=== PATIENT | male | born 1990 | race Caucasian/White ===

== ENCOUNTER 2016-10-29 17:17 | Emergency (ER) | payer MEDICAID, OTHER ==
[~2016-10-29] VITALS: Ht 170.2 cm; Wt 72.6 kg
[2016-10-29 17:29] VITALS: BP 131/68
[2016-10-29] MEDS ORDERED: ROBITUSSIN COU118 M4 PO (17:49)
[2016-10-29] MEDS ORDERED: AMOXICILLIN500 MG ORAL (17:49)
[2016-10-29 17:53] VITALS: BP 131/68
--- NOTE | 2016-10-29 18:08 | Emergency Room Report ---
History of Present Illness General Chief Complaint: Upper Respiratory Illness Source: Patient Present Illness HPI The patient is a 25-year-old male presenting for 4 days of productive cough and sore throat. The patient does admit to a sick contact which had similar symptoms. The patient denies recent travel. The patient denies fever, chills, shortness of breath, wheezing, hemoptysis, headache, neck pain or stiffness, CP Allergies: Coded Allergies: No Known Allergies (Unverified , 10/29/16) Patient History Past Medical History: see triage record Pertinent Family History: none Reviewed Nursing Documentation: PMH: Agreed, PSxH: Agreed Nursing Documentation-PM Past Medical History: No Stated History Review of Systems All Other Systems: negative except mentioned in HPI Physical Exam Vital Signs Date Time Temp Pulse Resp B/P Pulse Ox O2 Delivery O2 Flow Rate FiO2 10/29/16 17:22 97.9 96 15 131/68 97 Room Air Sp02 EP Interpretation: reviewed, normal General Appearance: no apparent distress, alert, GCS 15, non-toxic Head: normocephalic, atraumatic Eyes: bilateral eye PERRL, bilateral eye normal inspection ENT: hearing grossly normal, no angioedema, normal voice, TMs + canals normal, moist mucus membranes, tonsillar swelling, pharyngeal erythema Neck: full range of motion, supple/symm/no masses Respiratory: chest non-tender, lungs clear, normal breath sounds, no respiratory distress, no accessory muscle use, no wheezing, speaking full sentences Cardiovascular #1: regular rate, rhythm, no edema Musculoskeletal: back normal, gait/station normal, normal range of motion, non- tender Neurologic: alert, oriented x3, responsive, motor strength/tone normal, sensory intact, speech normal Psychiatric: judgement/insight normal, memory normal, mood/affect normal, no suicidal/homicidal ideation Skin: normal color, no rash, warm/dry, well hydrated Lymphatic: no adenopathy Medical Decision Making PA Attestation Dr. Valverde is my supervising physician. Patient management was discussed with my supervising physician Diagnostic Impression: Primary Impression: Pharyngitis, acute ER Course The patient is a 25-year-old male presenting for 4 days of productive cough and sore throat. Differential diagnosis include but not limited to pharyngitis, sinusitis, AOM, bronchitis, PNA Physical exam: Vitals within normal limits. Afebrile. No apparent distress HEENT: Uvula midline. Moist mucous membranes. There is bilateral tonsillar edema and erythema. + Cervical lymphadenopathy. Lungs clear to auscultation bilaterally Otherwise exam unremarkable The patient will be discharged home with a prescription for cough medication and amoxicillin. ER precautions given Last Vital Signs Date Time Temp Pulse Resp B/P Pulse Ox O2 Delivery O2 Flow Rate FiO2 10/29/16 17:53 97.9 68 15 131/68 97 Room Air Status: improved Disposition: HOME, SELF-CARE Condition: Improved Scripts Guaifenesin/Dextromethorphan (Robitussin Cough-Chest Dm Liq) 118 Ml Liquid 10 ML PO Q4HR, #118 ML Prov: [email or web address] 10/29/16 Amoxicillin* (AMOXIL*) 500 Mg Capsule 500 MG ORAL Q12HR, #20 CAP Prov: BRYANNA [email or web address]. 10/29/16 Patient Instructions: Pharyngitis Additional Instructions: I discussed my findings with the patient. All questions and concerns have been answered. Treatment and medication compliance have been addressed. I advised the patient that they need to follow up with PMD in 3-5 days. Return to ED if pain remains or worsens, cough worsens or remains, you notice blood in your sputum, you notice wheezing, you experience a fever, or if needed for any reason. Patient verbalized understanding of discharge instructions. BRYANNA MICHAEL Oct 29, 2016 18:08
== END 2016-10-29 17:54 | disposition home or self-care (01) ==
LOC: EMR 17:45
DX: J02.9 Acute pharyngitis, unspecified (principal)
CPT/HCPCS: 99282